=== PATIENT | female | born 1955 | race Caucasian/White ===

== ENCOUNTER → 2017-06-03 | Outpatient (CLI) | payer MEDICARE, BC ==
--- NOTE | 2017-06-03 14:32 | KCIC ---
CERVICAL SPINE 2-3V, LUMBAR SPINE 2-3V, THORACIC SPINE 3V Clinical Indication: Cervicalgia. Chronic low back pain. Comparison: None. Findings: There is mild grade 1 anterolisthesis of C4 on C5. C6 and C7 are not well seen on the lateral or swimmer's views. There appears to be disc space narrowing of C5/C6 and C6/C7. The prevertebral soft tissues are normal. There is mild facet hypertrophy in the mid cervical spine, worse on the left than the right. Atherosclerotic aortic arch. Lateral masses relatively symmetric. Tip of the odontoid is obscured due to bony overlap. The vertebral body height and alignment are maintained in the thoracic spine. There is degenerative endplate spurring. Visualized lungs are clear. The paravertebral stripes are smooth. There is minimal S-shaped thoracolumbar scoliosis. There is posterior fusion of L4-L5 with bilateral pedicle screws at each level. There is interbody spacer of L4/L5. There is posterior decompression. There may be mild grade 1 retrolisthesis of L4 on L5. There is mild grade 1 anterolisthesis of L2 on L3. No loss of vertebral body height. There is mild disc space narrowing of L2/L3. Cholecystectomy. There is stool in the transverse colon. IMPRESSION: 1. No acute bone abnormality. 2. C6 and C7 are not well seen. Probable mild degenerative spondylosis of C5/C6 and C6/C7. 3. Posterior fusion of L4-L5. Electronically signed by: Víctor Rodarte MD (06/03/2017 2:29 PM) [id number]
== END | disposition home or self-care (01) ==
LOC: KCIC 11:54
PROVIDERS: ATTEND Family Medicine
DX: M41.85 Other forms of scoliosis, thoracolumbar region (principal); Q25.49 Other congenital malformations of aorta; M48.02 Spinal stenosis, cervical region; M48.061 Spinal stenosis, lumbar region without neurogenic claudication; Z90.49 Acquired absence of other specified parts of digestive tract
CPT/HCPCS: 72040; 72072; 72100

== ENCOUNTER → 2017-11-19 | Outpatient (CLI) | payer MEDICARE, BC | END | disposition home or self-care (01) | LOC: KCIC 10:48 | DX: M25.552 Pain in left hip (principal) | CPT/HCPCS: 73502 ==